=== PATIENT | male | born 1955 | race Caucasian/White ===

== ENCOUNTER 2024-01-04 07:39 | Day surgery (SDC) | payer MEDICARE ==
[~2024-01-04] VITALS: Ht 180.3 cm; Wt 82.4 kg
[~2024-01-04 07:39] MED LIST: ATOR20 PO; Balanced Salt Epinephrine Irrigation Solution 500 mL IR SCH; FINA5 PO; GEMF600 PO; LISI20 PO; LOSA25 PO; Lidocaine HCl/Pf 1% 5 ML VIAL XX SCH; Moxifloxacin HCL 0.5 MG/0.1 ML 0.4MLSYR LEFTEYE SCH; PHENYLEPHRINE\\TROPICAMIDE\\TETRACAINE OPHTHALMIC DILATING SOLN LEFTEYE PRN; PROPRANOLOL PO; Povidone-Iodine 450 DROP/30 ML Solution LEFTEYE SCH; RAPAFLO PO; TAMS.4ER PO; Triamcinolone Inj Susp 40 MG / ML 1ML Vial INJ SCH; Triamcinolone Inj Susp 40 MG / ML 1ML Vial ONE; ZOLP10 PO
[2024-01-04] MEDS ORDERED: Midazolam HCl 1MG / ML 2ML Vial ONE (08:08)
[2024-01-04] MEDS ORDERED: Tetracaine HCl 0.5% Opth Soln 15 ml XX ONE (08:41)
[2024-01-04 09:04] VITALS: BP 109/83
[2024-01-04] MEDS ORDERED: Lidocaine HCl/Pf 1% 5 ML VIAL ONE (10:05)
== END 2024-01-04 09:14 | disposition home or self-care (01) ==
LOC: ORSCSDS 07:39
PROVIDERS: Ophthalmology
PROC: 08RK3JZ Replacement of Left Lens with Synthetic Substitute, Percutaneous Approach (ICD-10-PCS; principal; 2024-01-04 09:00)
DX: H25.812 Combined forms of age-related cataract, left eye (principal); Z96.1 Presence of intraocular lens; H52.202 Unspecified astigmatism, left eye; I10 Essential (primary) hypertension; I47.10 Supraventricular tachycardia, unspecified; E78.5 Hyperlipidemia, unspecified; Z79.899 Other long term (current) drug therapy
CPT/HCPCS: J2003; J2250; J3301; V2632